=== PATIENT | female | born 1965 | race Two or more races ===

== ENCOUNTER 2020-07-06 10:20 | Outpatient (CLI) | payer OTHER | END 2020-07-06 16:54 | disposition home or self-care (01) | LOC: OFIC 805 10:20 | PROVIDERS: ATTEND Otolaryngology | DX: M54.2 Cervicalgia (principal); R09.89 Other specified symptoms and signs involving the circulatory and respiratory systems; K21.9 Gastro-esophageal reflux disease without esophagitis ==